=== PATIENT | male | born 1990 | race Caucasian/White ===

== ENCOUNTER 2021-05-27 18:48 | Emergency (ER) | payer MEDICAID ==
[~2021-05-27] VITALS: Ht 170.2 cm; Wt 68.0 kg
--- NOTE | 2021-05-27 19:00 | NUR ---
THE PATIENT IS BIBS FOR C/O FEVER, HEADACHE AND BODY ACHES X 2 DAYS. ALERT AND ORIENTED X4. IN ROOM AIR AND DENIES SOB. RESPIRATION REGULAR AND UNLABORED. DENIES PAIN. WILL CONTINUE TO MONITOR THE PATIENT.
[2021-05-27] MEDS ORDERED: ACETAMINOPHEN ES 500 MG TABLET ONE (19:15)
[2021-05-27 19:16] VITALS: BP 127/78
--- NOTE | 2021-05-27 19:16 | NUR ---
COVID SWAB DONE AND SENT TO THE LAB
--- NOTE | 2021-05-27 19:16 | NUR ---
Patient discharged to home in stable condition. Written and verbal after care instructions given. Patient verbalizes understanding of instruction.
[2021-05-27] MEDS ORDERED: ACETAMINOPHEN ES 500 MG TABLET PO ONE (19:30)
== END 2021-05-27 19:17 | disposition home or self-care (01) ==
LOC: ER 18:48
DX: B34.9 Viral infection, unspecified (principal); R51.9 Headache, unspecified; Z20.822 Contact with and (suspected) exposure to COVID-19
CPT/HCPCS: 99283; C9803; U0003

== ENCOUNTER 2021-06-20 17:24 | Emergency (ER) | payer MEDICAID ==
[~2021-06-20] VITALS: Ht 170.2 cm; Wt 63.5 kg
[2021-06-20] MEDS ORDERED: PANTOPRAZOLE 40 MG VIAL ONE (17:50)
[2021-06-20] MEDS ORDERED: ONDANSETRON HCL/PF 4 MG/2 ML VIAL ONE (17:50)
[2021-06-20] MEDS ORDERED: MAG HYDROX/AL HYDROX/SIMETH 30 ML UDC ONE (17:50)
[2021-06-20] MEDS ORDERED: LIDOCAINE VISCOUS 2% UD 15 ML UDC ONE (17:50)
--- NOTE | 2021-06-20 17:50 | NUR ---
PATIENT BIBS. C/O BLACK MUDDY STOOL THIS MORNING X 1 EPISODE W/ LOWER ABD PAIN. PATIENT ALERT AND ORIENTED. NO RESPIRATORY DISTRESS NOTED WILL CONTINUE TO MONITOR
[2021-06-20] MEDS ORDERED: LIDOCAINE VISCOUS 2% UD 15 ML UDC MM ONE (18:00)
[2021-06-20] MEDS ORDERED: ONDANSETRON HCL/PF 4 MG/2 ML VIAL IVP ONE (18:00)
[2021-06-20] MEDS ORDERED: IV NS 0.9% 1,000 ML BAG IV ONE (18:00)
[2021-06-20] MEDS ORDERED: MAG HYDROX/AL HYDROX/SIMETH 30 ML UDC PO ONE (18:00)
[2021-06-20] MEDS ORDERED: PANTOPRAZOLE 40 MG VIAL IV ONE (18:00)
[2021-06-20 18:11] LABS: BASOPHILS % (AUTO) 0.7 % (0.0-2.0); EOSINOPHILS % (AUTO) 0.3 % (0.0-6.0); HEMATOCRIT 39 % (39-51); HEMOGLOBIN 13.2 g/dL (13.5-17.5); LYMPHOCYTES # (AUTO) 2.4 K/uL (0.8-4.8); LYMPHOCYTES % (AUTO) 38.2 % (20.0-44.0); MEAN CORPUSCULAR HGB CONC 34 g/dl (31.0-36.0); MEAN CORPUSCULAR VOLUME 92 fL (80-96); MONOCYTES # (AUTO) 0.8 K/uL (0.1-1.30); MONOCYTES % (AUTO) 12.4 % (2.0-12.0); NEUTROPHILS # (AUTO) 3.1 K/uL (1.8-8.9); NEUTROPHILS % (AUTO) 48.4 % (43.0-81.0); PLATELET COUNT (AUTO) 334 K/uL (150-450); RED BLOOD CELL COUNT(AUTO) 4.27 MIL/uL (4.5-6.0); WHITE BLOOD COUNT (AUTO) 6.4 K/uL (4.3-11.0)
[2021-06-20 18:18] LABS: CALCIUM, SERUM 8.8 mg/dL (8.5-10.1); CREATININE 1.2 mg/dL (0.6-1.3); POTASSIUM 3.7 mmol/L (3.5-5.1)
[2021-06-20 18:23] LABS: ALBUMIN 3.6 g/dL (3.4-5.0); BILIRUBIN,DIRECT 0.1 mg/dL (0.0-0.2); BILIRUBIN,TOTAL 0.3 mg/dL (0.2-1.0); TOTAL PROTEIN, SERUM 7.8 g/dL (6.4-8.2)
[2021-06-20] MEDS ORDERED: IV NS 0.9% 250 ML IV ONE (18:52)
[2021-06-20] MEDS ORDERED: IOHEXOL-300 100 ML VIAL IV ONE (18:52)
--- NOTE | 2021-06-20 19:20 | NUR ---
RETURNED FROM CT
--- NOTE | 2021-06-20 20:41 | NUR ---
US AT BEDSIDE
[2021-06-20] MEDS ORDERED: ONDA4TAB5 PO (21:27)
[2021-06-20] MEDS ORDERED: PANT20TA2 PO (21:27)
[2021-06-20 21:35] VITALS: BP 135/87
--- NOTE | 2021-06-20 21:36 | NUR ---
Patient discharged to home in stable condition. Rx and Written and verbal after care instructions given. Patient verbalizes understanding of instruction.
== END 2021-06-20 21:37 | disposition home or self-care (01) ==
LOC: ER 18:04
DX: R10.30 Lower abdominal pain, unspecified (principal)
CPT/HCPCS: 36415; 71045; 74177; 76705; 80048; 80076; 83690; 85025; 85730; 96361; 96374; 96375; 99285; C9113; J2405; J7030; J7050; Q9967